=== PATIENT | male | born 1995 | race African-American/Black ===

== ENCOUNTER 2018-01-30 09:09 | Emergency (ER) | payer SELFPAY ==
[~2018-01-30] VITALS: Ht 195.6 cm; Wt 127.5 kg
[2018-01-30] MEDS ORDERED: CEPHALEXIN500 MG ORAL (09:56)
[2018-01-30] MEDS ORDERED: IBUPROFEN600 MG ORAL (09:56)
[2018-01-30] MEDS ORDERED: BACTRIM DS TAB1 EAC1 ORAL (09:56)
[2018-01-30] MEDS ORDERED: Cephalexin 500mg cap ORAL ONE (10:00)
[2018-01-30] MEDS ORDERED: Bactrim-DS 1 tab ORAL ONE (10:00)
[2018-01-30 10:05] VITALS: BP 127/80
--- NOTE | 2018-01-30 11:28 | Emergency Room Report ---
History of Present Illness General Chief Complaint: Lower Extremity Injury Source: Patient Present Illness HPI 22-year-old female presents ED for evaluation. Complaining of pain and swelling to the left ankle. Denies any injury. Started 3 days ago with a "insect bite". Noticed a small bump which got progressively larger. Entire ankle now swollen. Throbbing, 6 out of 10, nonradiating. Able to bear weight. Denies fevers or chills. Denies any discharge. No other aggravating relieving factors. Denies any other associated symptoms Allergies: Coded Allergies: No Known Allergies (Unverified , 01/30/18) Patient History Past Medical History: none Past Surgical History: none Pertinent Family History: none Social History: Denies: smoking, alcohol use, drug use Immunizations: UTD Reviewed Nursing Documentation: PMH: Agreed; PSxH: Agreed Nursing Documentation-PMH Past Medical History: No Stated History Review of Systems All Other Systems: negative except mentioned in HPI Physical Exam Vital Signs Date Time Temp Pulse Resp B/P (MAP) Pulse Ox O2 Delivery O2 Flow Rate FiO2 01/30/18 09:30 98.4 93 18 127/80 96 Room Air Sp02 EP Interpretation: reviewed, normal General Appearance: no apparent distress, alert, GCS 15, non-toxic Head: normocephalic Eyes: bilateral eye normal inspection, bilateral eye PERRL ENT: normal ENT inspection Neck: normal inspection Respiratory: normal inspection Cardiovascular #1: normal inspection Gastrointestinal: normal inspection Rectal: deferred Genitourinary: no CVA tenderness Musculoskeletal: decreased range of motion, swelling - L ankle Neurologic: alert, oriented x3, responsive, motor strength/tone normal, sensory intact, speech normal Psychiatric: normal inspection Skin: other - erythema/induration to dorsum L ankle. no fluctuance or discharge Lymphatic: normal inspection Medical Decision Making Diagnostic Impression: Primary Impression: Cellulitis of ankle ER Course Hospital Course 22-year-old male presents to ED with redness, swelling to L ankle Differential diagnoses include: Cellulitis, dermatitis, insect bite, abscess Clinical course Patient placed on stretcher. After initial history, physical exam reveals a male in no acute distress. On exam there is a site for mild erythema and induration to the dorsum L ankle. There is no fluctuance. Full range of motion is noted in the right knee and there is no concern for any signs of infection to the joint. Discussed findings with patient. We will treat as insect bite with superinfection. Given Bactrim, Keflex here. We'll discharge with antibiotics. Recommend analgesics warm compresses. Patient is afebrile, nontoxic. Patient is certainly candidate for outpatient therapy. Patient does not have a PMD. We'll provide outpatient referrals Diagnosis -cellulitis of ankle stable and discharged to home with prescription for motrin, bactrim, Keflex. warm compresses. Instructed to followup with PMD. Instructed return to ED if symptoms recur or worsen Last Vital Signs Date Time Temp Pulse Resp B/P (MAP) Pulse Ox O2 Delivery O2 Flow Rate FiO2 01/30/18 10:05 98.4 18 127/80 96 Room Air 01/30/18 09:30 93 Status: improved Disposition: HOME, SELF-CARE Condition: Stable Scripts Cephalexin* (KEFLEX*) 500 Mg Capsule 500 MG ORAL EVERY 6 HOURS for 7 Days, CAP Prov: Lake Nuñez MD 01/30/18 Trimethoprim/Sulfamethoxazole 160/800* (BACTRIM DS TABLET*) 1 Each Tablet 1 TAB ORAL Q12H, #14 TAB 0 Refills Prov: Lake Nuñez MD 01/30/18 Ibuprofen* (MOTRIN*) 600 Mg Tablet 600 MG ORAL Q8H PRN for For Pain, #30 TAB 0 Refills Prov: Lake Nuñez MD 01/30/18 Referrals: NON PHYSICIAN (PCP) [facility] Mariluz Luna [facility] Patient Instructions: Cellulitis, [id number] Lake Nuñez MD Jan 30, 2018 11:28
== END 2018-01-30 10:05 | disposition home or self-care (01) ==
LOC: EMR 09:40
DX: L03.116 Cellulitis of left lower limb (principal)
CPT/HCPCS: 99283